=== PATIENT | female | born 1960 | race Hispanic/Latino ===

== ENCOUNTER 2022-05-03 03:22 | Emergency (ER) | payer MEDICARE, MEDICAID, SELFPAY ==
[2022-05-03] VITALS (18 sets, daily range): BP systolic 130–157; BP diastolic 58–71; PULSE 77–96; RESP 18; TEMP 36.4; O2SAT 91–97; BMI 36.1
--- NOTE | 2022-05-03 04:50 | ED_ITS ---
HPI - Abdominal Pain <Georgieralph KingDO - Last Filed: 05/03/22 18:17> General Chief Complaint: Abdominal Pain Stated Complaint: abd. pain/post surgery DIVERTICULITIS 04/27/22 Time Seen by Provider: 05/03/22 04:45 Source: patient, family and hourly sign language interpreter (language line) Mode of arrival: Ambulatory Limitations: no limitations History of Present Illness HPI narrative: This is a 62-year-old female with history of hypertension, tubal ligation and hysterectomy with colon resection approximately 1 week ago at [facility] for diverticulitis. Patient is unsure if she had an abscess or perforation but states that she had a portion of her colon removed. Patient states she has been having pain since the surgery but rapidly increased today. She states she was on several medications for pain including 3 tablets of oxycodone regularly during her hospital stay but was sent home with only a few tablets of oxycodone and has not been able to control her pain. She has not been taking any stool softeners or other medications to help with stooling. She denies fevers or chills. She has had nausea. She denies chest pain or shortness of breath. She has not had a bowel movement since before her surgery. She states she was passing a small amount of flatus immediately postop but has had increasing amounts of flatus since. She denies dysuria urgency or frequency. She is had some vaginal burning but denies any discharge. She states her incisions have color she does not like and they burn right at the edges but have not had any increasing redness, drainage or odor. Patient states she has not restarted her home blood pressure medication since discharge. Patient states she is allergic to penicillin and aspirin. She gets hives and rash with penicillin. She does not know if she can take amoxicillin, Augmentin for other medications. She denies tobacco, alcohol or illicit. She is accompanied by her daughter. Patient does have a primary care physician in the [place] area but does not recall her name. Related Data Previous Rx's Medication Instructions Recorded BENZONATATE (TESSALON PERLES~) 0 PO Q8H PRN ##40 07/25/12 ondansetron 4 mg disintegrating 4 mg PO Q8H PRN nausea and 05/03/22 tablet vomiting #10 tabs Allergies Allergy/AdvReac Type Severity Reaction Status Date / Time Penicillins Allergy Mild Verified 05/03/22 09:50 Review of Systems <Georgie King DO - Last Filed: 05/03/22 18:17> Review of Systems ROS Unobtainable: All systems reviewed & are unremarkable except as noted in HPI and below Patient History <Georgie King DO - Last Filed: 05/03/22 18:17> Social History Smoking Status: Never smoker Smoking Status: Never smoker alcohol intake frequency: holidays/special occasions only Substance Use Type: does not use Exam <Georgie King DO - Last Filed: 05/03/22 18:17> Narrative Exam Narrative: GENERAL: Alert and oriented x three, obese female in mild distress. HEENT: Head normocephalic, atraumatic, EOMI, pupils reactive, face symmetric, moist mucous membranes NECK: Supple, full range of motion CARDIOVASCULAR: Regular rate and rhythm without murmurs, rubs or gallops. RESPIRATORY: Breath sounds equal bilaterally, no wheezes rales or rhonchi. ABDOMEN: Soft, positive for right upper lower quadrant tenderness, Normoactive bowel sounds all 4 quadrants. No guarding or rebound, rigidity, no mass. Patient has 3 small incisions consistent with laparoscopic surgery as well as a larger horizontal incision just over the pubic bone, they are clean dry intact, appear to be healing well, very scant erythema the incision itself but without any extension, no odor, no discharge no swelling. : Positive right flank CVA tenderness, no left flank tenderness. EXTREMITIES: Normal range of motion, no clubbing or edema. Neurovascularly intact NEUROLOGICAL: Cranial nerves II through XII grossly intact. Moving all extremities SKIN: Warm, dry, no petechiae, no rashes or lesions. Initial Vital Signs Initial Vital Signs: Vital Signs Temperature 97.6 F 05/03/22 03:38 Pulse Rate 91 H 05/03/22 03:38 Respiratory Rate 18 05/03/22 03:38 Blood Pressure 157/71 H 05/03/22 03:38 Pulse Oximetry 97 05/03/22 03:38 Oxygen Delivery Method 05/03/22 03:38 <Kimberlee Diaz DO - Last Filed: 05/03/22 16:14> Initial Vital Signs Initial Vital Signs: Vital Signs Temperature 97.6 F 05/03/22 03:38 Pulse Rate 91 H 05/03/22 03:38 Respiratory Rate 18 05/03/22 03:38 Blood Pressure 157/71 H 05/03/22 03:38 Pulse Oximetry 97 05/03/22 03:38 Oxygen Delivery Method 05/03/22 03:38 Course <Georgie King DO - Last Filed: 05/03/22 18:17> Orders Ordered: Discontinued Medications Acetaminophen (Acetaminophen 325 Mg Tablet) 975 mg PO NOW ONE Stop: 05/03/22 09:25 Last Admin: 05/03/22 09:44 Dose: 975 mg Documented By: REYNA Sodium Chloride (Normal Saline 0.9%) 1,000 mls @ 1,000 mls/hr IV BOLUS ONE Stop: 05/03/22 06:11 Last Infusion: 05/03/22 07:05 Dose: 0 mls/hr Documented By: Admin: 05/03/22 05:47 Dose: 1,000 mls/hr Documented By: DONOVAN Ketorolac Tromethamine (Ketorolac 30 Mg/Ml Vial) 15 mg IV NOW ONE Stop: 05/03/22 05:13 Last Admin: 05/03/22 05:46 Dose: 15 mg Documented By: DONOVAN Ondansetron HCl (Ondansetron 4 Mg/2 Ml Inj) 4 mg IV NOW ONE Stop: 05/03/22 05:13 Last Admin: 05/03/22 05:47 Dose: 4 mg Documented By: DONOVAN Ondansetron HCl (Ondansetron 4 Mg/2 Ml Inj) 4 mg IV NOW ONE Stop: 05/03/22 09:25 Last Admin: 05/03/22 09:45 Dose: 4 mg Documented By: REYNA Vital Signs Vital signs: Vital Signs - 8 hr 05/03/22 10:30 05/03/22 11:43 Pulse Rate 77 78 Respiratory Rate 18 Pulse Oximetry 97 Oxygen Delivery Method Room Air <Kimberlee Diaz DO - Last Filed: 05/03/22 16:14> Orders Ordered: Discontinued Medications Acetaminophen (Acetaminophen 325 Mg Tablet) 975 mg PO NOW ONE Stop: 05/03/22 09:25 Last Admin: 05/03/22 09:44 Dose: 975 mg Documented By: REYNA Sodium Chloride (Normal Saline 0.9%) 1,000 mls @ 1,000 mls/hr IV BOLUS ONE Stop: 05/03/22 06:11 Last Infusion: 05/03/22 07:05 Dose: 0 mls/hr Documented By: Admin: 05/03/22 05:47 Dose: 1,000 mls/hr Documented By: DONOVAN Ketorolac Tromethamine (Ketorolac 30 Mg/Ml Vial) 15 mg IV NOW ONE Stop: 05/03/22 05:13 Last Admin: 05/03/22 05:46 Dose: 15 mg Documented By: DONOVAN Ondansetron HCl (Ondansetron 4 Mg/2 Ml Inj) 4 mg IV NOW ONE Stop: 05/03/22 05:13 Last Admin: 05/03/22 05:47 Dose: 4 mg Documented By: DONOVAN Ondansetron HCl (Ondansetron 4 Mg/2 Ml Inj) 4 mg IV NOW ONE Stop: 05/03/22 09:25 Last Admin: 05/03/22 09:45 Dose: 4 mg Documented By: REYNA Vital Signs Vital signs: Vital Signs - 8 hr 05/03/22 10:30 05/03/22 11:43 Pulse Rate 77 78 Respiratory Rate 18 Pulse Oximetry 97 Oxygen Delivery Method Room Air MDM - Abdominal Pain <Georgie King DO - Last Filed: 05/03/22 18:17> Lab Data Result diagrams: 05/03/22 05:45 05/03/22 05:45 Labs: Lab Results 05/03/22 05/03/22 Range/Units 05:45 05:45 WBC 11.3 H (4.5-11.0) X10^3/uL RBC 4.21 (4.0-5.2) X10^6/uL Hgb 12.5 (12.0-16.0) g/dL Hct 38.3 (36-46) % MCV 91.0 (80-100) fL MCH 29.6 (26-34) PG MCHC 32.6 (30-36) % RDW 13.8 (11.6-14.8) % Plt Count 266 (150-400) X10^3/uL Neut % (Auto) 65.6 (50-75) % Lymph % (Auto) 26.1 (25-40) % [place] % (Auto) 6.3 (3-14) % Eos % (Auto) 1.4 L (2-4) % Baso % (Auto) 0.6 (0-2) % Neut # (Auto) 7400 H (8886-5135) /uL Lymph # (Auto) 3000 (4895-1801) /uL [place] # (Auto) 700 (0-900) /uL Eos # (Auto) 200 (0-450) /uL Baso # (Auto) 100 (0-100) /uL Sodium 137 (137-145) mmol/L Potassium 4.1 (3.4-5.1) mmol/L Chloride 103 (98-107) mmol/L Carbon Dioxide 29 (22-32) mmol/L BUN 15 (7-17) mg/dL Creatinine 0.51 L (0.52-1.04) mg/dL Estimated GFR > 60 (>60) mL/min BUN/Creatinine Ratio 29.4 H (6-22) Glucose 124 H (80-110) mg/dL Calcium 8.6 (8.4-10.2) mg/dL Total Bilirubin 0.5 (0.2-1.3) mg/dL AST 42 H (14-36) IU/L ALT 55 H (<35) IU/L Alkaline Phosphatase 84 (38-126) U/L Total Protein 7.3 (6.3-8.2) g/dL Albumin 3.9 (3.5-5.0) g/dL Globulin 3.4 (1.7-4.1) g/dL Albumin/Globulin Ratio 1.1 (1.0-2.8) Lipase 25 (23-300) U/L Point of care testing: Urine Dip Bedside Urine Glucose Negative Bedside Urine Bilirubin - Negative Bedside Urine Ketone - Negative Urine Specific [place] 1.020 Bedside Urine Occult Blood - Negative Bedside Urine pH 6.0 Bedside Urine Protein - Negative Bedside Urine Urobilinogen - Negative Bedside Urine Nitrite - Negative Bedside Urine Leukocytes - Negative Esterase MDM Narrative Medical decision making narrative: This is a 62-year-old female with hypertension, patient with reported colon resection week ago at [facility] for diverticulitis. Unsure if patient had abscess, perforation or other cause. Patient has right upper lower quadrant as well as flank tenderness. She has been constipated she has not been vomiting she is passing flatus which makes my suspicion for bowel obstruction much lower, she has been taking narcotics but no stool softeners. Concern for infection is also on the differential as she is had recent surgery. Her incisions appear to be healing well but CT abdomen pelvis, labs were obtained to evaluate. Patient's vitals appropriate on arrival, she has not restarted her antihypertensives yet. <Kimberlee Diaz, DO - Last Filed: 05/03/22 16:14> Lab Data Labs: Lab Results 05/03/22 05/03/22 Range/Units 05:45 05:45 WBC 11.3 H (4.5-11.0) X10^3/uL RBC 4.21 (4.0-5.2) X10^6/uL Hgb 12.5 (12.0-16.0) g/dL Hct 38.3 (36-46) % MCV 91.0 (80-100) fL MCH 29.6 (26-34) PG MCHC 32.6 (30-36) % RDW 13.8 (11.6-14.8) % Plt Count 266 (150-400) X10^3/uL Neut % (Auto) 65.6 (50-75) % Lymph % (Auto) 26.1 (25-40) % [place] % (Auto) 6.3 (3-14) % Eos % (Auto) 1.4 L (2-4) % Baso % (Auto) 0.6 (0-2) % Neut # (Auto) 7400 H (8261-2734) /uL Lymph # (Auto) 3000 (0564-2630) /uL [place] # (Auto) 700 (0-900) /uL Eos # (Auto) 200 (0-450) /uL Baso # (Auto) 100 (0-100) /uL Sodium 137 (137-145) mmol/L Potassium 4.1 (3.4-5.1) mmol/L Chloride 103 (98-107) mmol/L Carbon Dioxide 29 (22-32) mmol/L BUN 15 (7-17) mg/dL Creatinine 0.51 L (0.52-1.04) mg/dL Estimated GFR > 60 (>60) mL/min BUN/Creatinine Ratio 29.4 H (6-22) Glucose 124 H (80-110) mg/dL Calcium 8.6 (8.4-10.2) mg/dL Total Bilirubin 0.5 (0.2-1.3) mg/dL AST 42 H (14-36) IU/L ALT 55 H (<35) IU/L Alkaline Phosphatase 84 (38-126) U/L Total Protein 7.3 (6.3-8.2) g/dL Albumin 3.9 (3.5-5.0) g/dL Globulin 3.4 (1.7-4.1) g/dL Albumin/Globulin Ratio 1.1 (1.0-2.8) Lipase 25 (23-300) U/L Point of care testing: Urine Dip Bedside Urine Glucose Negative Bedside Urine Bilirubin - Negative Bedside Urine Ketone - Negative Urine Specific [place] 1.020 Bedside Urine Occult Blood - Negative Bedside Urine pH 6.0 Bedside Urine Protein - Negative Bedside Urine Urobilinogen - Negative Bedside Urine Nitrite - Negative Bedside Urine Leukocytes - Negative Esterase Imaging Data CT scan - abdomen/pelvis: Radiologist's Impression: CT Scan Report Signed Patient: Yaima Cleaning MR#: [id number] : 1960 Acct:[id number] Age/Sex: 62 / F Date of Service: 05/03/22 Loc: ED Accession Number: [id number] ?? Procedure: CT abdomen pelvis w con Ordering Provider: Georgie King D.O. PROCEDURE:? CT ABDOMEN PELVIS W CON ? INDICATIONS:? R flank/side pain, no BM, s/p sx 1 wee ago ? TECHNIQUE:? After the administration of intravenous contrast, axial sections acquired from the lung bases to the pubic symphysis.? Coronal and sagittal reformats were performed.? For radiation dose reduction, the following was used:? automated exposure control, adjustment of mA and/or kV according to patient size.? ? COMPARISON:? [facility], CT, CT ABDOMEN PELVIS WITH CONTRAST, 01/21/2022, 10:48. ? FINDINGS:? Image quality:? Good ? Lower chest:? Basilar opacities, possibly aspiration or early airspace disease, with superimposed thick linear atelectasis or scarring. Nonspecific distal esophageal wall thickening.? Mild cardiomegaly. ? Solid organs:? Subcentimeter lesions are too small to characterize.? Liver is otherwise unremarkable.? Gallbladder is within normal limits.? No pathologic dilation of the biliary tree or pancreatic duct.? No splenomegaly.? No adrenal nodules.? No hydronephrosis.? Mild fat stranding around the left distal ureter, possibly reactive, correlate with urinalysis. ? Vessels and lymph nodes:? Main portal vein is patent.? No abdominal aortic an eurysm.? No pathologic adenopathy by size criteria. ? Bowel and peritoneum:? Nonobstructed.? Interval creation of a suture line at the sigmoid colon.? There is a moderate degree of surrounding fat stranding.? No drainable abscess is identified.? The fat stranding extends proximally along the left pericolic gutter and splenic flexure.? Colonic diverticula are present. Suspected dilated appendix is present measuring 8-9 mm (. ? Body wall:? There is hyperemia and postsurgical changes in the ventral body wall. ? Pelvis:? Hysterectomy.? Fullness of the vaginal cuff, particularly on the right side, possibly reactive edema.? The ovaries also appear more prominent than prior, possibly reactive.? These should be followed on subsequent imaging. Air in the bladder, likely iatrogenic. ? Bones:? No acute or suspicious osseous abnormality. ? ? IMPRESSION:? Postsurgical changes in the pelvis with a sigmoid anastomosis.? No drainable abscess.? Inflammation extends from the distal colon to splenic flexure, possibly superimposed colitis. Suspected dilated and hyperemic appendix, correlate with surgical history and clinical presentation for possible appendicitis. Possible airspace disease and superimposed atelectasis at the lung bases partially seen. Other findings as above. ? Dictated by: Yony Poe M.D. on 05/03/2022 at 7:49 ? ? Approved by: Yony Poe M.D. on 05/03/2022 at 8:00 ? [facility] Narrative Medical decision making narrative: This is a 62-year-old female with hypertension, patient with reported colon resection week ago at [facility] for diverticulitis. Unsure if patient had abscess, perforation or other cause. Patient has right upper lower quadrant as well as flank tenderness. She has been constipated she has not been vomiting she is passing flatus which makes my suspicion for bowel obstruction much lower, she has been taking narcotics but no stool softeners. Concern for infection is also on the differential as she is had recent surgery. Her incisions appear to be healing well but CT abdomen pelvis, labs were obtained to evaluate. Patient's vitals appropriate on arrival, she has not restarted her antihypertensives yet. Emily, patient signed out to me by Dr. King. Patient seen and evaluated by myself hourly sign language interpreter services used. She has thompson across lower abdominal pain slig htly more on the right than the left. CT does show some inflammatory changes questionable appendicitis. She is mild leukocytosis of 11. Pain is much better after Toradol and Zofran. 1130-Dr. Bobby on-call surgery at [facility] finally able to see imaging. There was some technical difficulty. At this time she states this is likely all postoperative changes. No need for antibiotics. Recommend MiraLax once daily and Colace twice a day for constipation. Discharge Plan Departure Patient Disposition: Home Clinical Impression: Post-op pain Instructions: DI for Postoperative Pain Activity Restrictions/Additional Instructions: *You have been diagnosed with postoperative pain *What to do: At this time no need for antibiotics. No sign of appendicitis. Food may be causing irritation. Recommend low-fiber diet avoid beans fruits vegetables. Recommend breads pasta rice meat cheese, for about 4-6 weeks. *Continue to take medications as directed MiraLax once daily as needed for constipation Colace twice a day as needed for constipation *Follow up with your primary care provider in 2-3 days or call [phone] *Return to ER if you should have increasing pain fever or any new, worsening or concerning symptoms Prescriptions: New ondansetron 4 mg tablet,disintegrating 4 mg PO Q8H PRN (Reason: nausea and vomiting) Qty: 10 0RF No Action BENZONATATE (TESSALON PERLES~) 0 PO Q8H PRNQty: 40 0RF Visit Report Forms: Patient Portal/API
--- NOTE | 2022-05-03 05:13 | DI.CT.S_ITS ---
PROCEDURE: CT ABDOMEN PELVIS W CON INDICATIONS: R flank/side pain, no BM, s/p sx 1 wee ago TECHNIQUE: After the administration of intravenous contrast, axial sections acquired from the lung bases to the pubic symphysis. Coronal and sagittal reformats were performed. For radiation dose reduction, the following was used: automated exposure control, adjustment of mA and/or kV according to patient size. COMPARISON: [facility], CT, CT ABDOMEN PELVIS WITH CONTRAST, 01/21/2022, 10:48. FINDINGS: Image quality: Good Lower chest: Basilar opacities, possibly aspiration or early airspace disease, with superimposed thick linear atelectasis or scarring. Nonspecific distal esophageal wall thickening. Mild cardiomegaly. Solid organs: Subcentimeter lesions are too small to characterize. Liver is otherwise unremarkable. Gallbladder is within normal limits. No pathologic dilation of the biliary tree or pancreatic duct. No splenomegaly. No adrenal nodules. No hydronephrosis. Mild fat stranding around the left distal ureter, possibly reactive, correlate with urinalysis. Vessels and lymph nodes: Main portal vein is patent. No abdominal aortic aneurysm. No pathologic adenopathy by size criteria. Bowel and peritoneum: Nonobstructed. Interval creation of a suture line at the sigmoid colon. There is a moderate degree of surrounding fat stranding. No drainable abscess is identified. The fat stranding extends proximally along the left pericolic gutter and splenic flexure. Colonic diverticula are present. Suspected dilated appendix is present measuring 8-9 mm (3/32. Body wall: There is hyperemia and postsurgical changes in the ventral body wall. Pelvis: Hysterectomy. Fullness of the vaginal cuff, particularly on the right side, possibly reactive edema. The ovaries also appear more prominent than prior, possibly reactive. These should be followed on subsequent imaging. Air in the bladder, likely iatrogenic. Bones: No acute or suspicious osseous abnormality. IMPRESSION: Postsurgical changes in the pelvis with a sigmoid anastomosis. No drainable abscess. Inflammation extends from the distal colon to splenic flexure, possibly superimposed colitis. Suspected dilated and hyperemic appendix, correlate with surgical history and clinical presentation for possible appendicitis. Possible airspace disease and superimposed atelectasis at the lung bases partially seen. Other findings as above. Dictated by: Yony Poe M.D. on 05/03/2022 at 7:49 Approved by: Yony Poe M.D. on 05/03/2022 at 8:00
[2022-05-03] MEDS: KETOROLAC 30 MG/ML VIAL 15 MG IV (05:46)
[2022-05-03] MEDS: ONDANSETRON 4 MG/2 ML INJ IV ×2 (05:47→09:45)
[2022-05-03] MEDS: SODIUM CHLORIDE 0.9% 1,000 ML 1000 ML IV (05:47)
[2022-05-03 05:59] LABS: Add Manual Diff / Slide Review NO; Basophils Absolute Auto 100 /uL (0-100); Basophils Percent Auto 0.6 % (0-2); Eosinophils Absolute Auto 200 /uL (0-450); Eosinophils Percent Auto 1.4 % (2-4); Hematocrit 38.3 % (36-46); Hemoglobin 12.5 g/dL (12.0-16.0); Lymphocytes Absolute Auto 3000 /uL (1100-4500); Lymphocytes Percent Auto 26.1 % (25-40); Mean Corpuscular HGB Conc 32.6 % (30-36); Mean Corpuscular Hemoglobin 29.6 PG (26-34); Monocytes Absolute Auto 700 /uL (0-900); Monocytes Percent Auto 6.3 % (3-14); Neutrophils Absolute Auto 7400 /uL (1500-7000); Neutrophils Percent Auto 65.6 % (50-75); Platelet Count 266 X10^3/uL (150-400); Red Blood Cell Count 4.21 X10^6/uL (4.0-5.2); Red Cell Distribution Width 13.8 % (11.6-14.8); White Blood Cell Count 11.3 X10^3/uL (4.5-11.0)
[2022-05-03 06:01] LABS: Alanine Aminotransferase 55 IU/L (<35); Albumin 3.9 g/dL (3.5-5.0); Albumin Globulin Ratio 1.1 (1.0-2.8); Alkaline Phosphatase 84 U/L (38-126); Aspartate Aminotransferase 42 IU/L (14-36); BUN Creatinine Ratio 29.4 (6-22); Bilirubin Total 0.5 mg/dL (0.2-1.3); Blood Urea Nitrogen 15 mg/dL (7-17); Calcium 8.6 mg/dL (8.4-10.2); Carbon Dioxide 29 mmol/L (22-32); Chloride 103 mmol/L (98-107); Estimated Glomerular Filt Rate > 60 mL/min (>60); Globulin 3.4 g/dL (1.7-4.1); Glucose 124 mg/dL (80-110); HEMOLYSIS < 15 (0-50); Lipase 25 U/L (23-300); Potassium 4.1 mmol/L (3.4-5.1); Sodium 137 mmol/L (137-145); Total Protein 7.3 g/dL (6.3-8.2)
[2022-05-03] MEDS: ACETAMINOPHEN 325 MG TABLET 975 MG PO (09:44)
== END 2022-05-03 12:03 | disposition home or self-care (01) ==
PROVIDERS: Emergency Medicine; Emergency Provider Emergency Medicine
DX: G89.18 Other acute postprocedural pain (principal)
CPT/HCPCS: 36415; 74177; 80053; 81003; 83690; 85025; 96361; 96374; 96375; 96376; 99284; J1885; J2405; Q9967

== ENCOUNTER → 2023-06-22 09:04 | Outpatient (CLI) | payer MEDICARE, MEDICAID, SELFPAY ==
[2023-06-22 10:24] LABS: Add Manual Diff / Slide Review NO; Basophils Absolute Auto 0 /uL (0-100); Basophils Percent Auto 0.4 % (0-2); Eosinophils Absolute Auto 100 /uL (0-450); Eosinophils Percent Auto 1.3 % (2-4); Hemoglobin 13.8 g/dL (12.0-16.0); Lymphocytes Absolute Auto 2800 /uL (1100-4500); Lymphocytes Percent Auto 31.6 % (25-40); Mean Corpuscular HGB Conc 33.7 % (30-36); Mean Corpuscular Hemoglobin 30.3 PG (26-34); Mean Corpuscular Volume 90.1 fL (80-100); Monocytes Absolute Auto 500 /uL (0-900); Monocytes Percent Auto 6.1 % (3-14); Neutrophils Absolute Auto 5300 /uL (1500-7000); Neutrophils Percent Auto 60.6 % (50-75); Platelet Count 299 X10^3/uL (150-400); Red Blood Cell Count 4.56 X10^6/uL (4.0-5.2); Red Cell Distribution Width 13.9 % (11.6-14.8); White Blood Cell Count 8.8 X10^3/uL (4.5-11.0)
[2023-06-22 11:15] LABS: Alanine Aminotransferase 22 IU/L (<35); Albumin 4.1 g/dL (3.5-5.0); Albumin Globulin Ratio 1.3 (1.0-2.8); Alkaline Phosphatase 82 U/L (38-126); Aspartate Aminotransferase 23 IU/L (14-36); BUN Creatinine Ratio 26.1 (6-22); Bilirubin Total 0.5 mg/dL (0.2-1.3); Blood Urea Nitrogen 12 mg/dL (7-17); Calcium 9.4 mg/dL (8.4-10.2); Carbon Dioxide 28 mmol/L (22-32); Chloride 105 mmol/L (98-107); Cholesterol 235 mg/dL (140-199); Estimated Glomerular Filt Rate > 60 mL/min (>60); Globulin 3.1 g/dL (1.7-4.1); Glucose 102 mg/dL (80-110); HDL Cholesterol 34 mg/dL (40-60); HEMOLYSIS < 15 (0-50); LDL Cholesterol Calculated 153 mg/dL (<100); Potassium 4.4 mmol/L (3.4-5.1); Sodium 139 mmol/L (137-145); Total Protein 7.2 g/dL (6.3-8.2); Triglycerides 242 mg/dL (35-150)
[2023-06-22 12:02] LABS: Vitamin B12 858 pg/mL (239-931)
== END ==
PROVIDERS: PCP Family Medicine; Referring Provider Family Medicine; Visit Provider Family Medicine
DX: Z13.220 Encounter for screening for lipoid disorders (principal); M54.50 Low back pain, unspecified; G89.29 Other chronic pain; G62.9 Polyneuropathy, unspecified; Z90.49 Acquired absence of other specified parts of digestive tract
CPT/HCPCS: 36415; 80053; 80061; 82607; 84443; 85025

== ENCOUNTER → 2024-07-19 09:08 | Outpatient (CLI) | payer MEDICARE, MEDICAID, SELFPAY | PROVIDERS: PCP Family Medicine; Visit Provider Family Medicine | DX: N89.8 Other specified noninflammatory disorders of vagina (principal) | CPT/HCPCS: 87210; 87491; 87563; 87591 ==

== ENCOUNTER → 2024-07-28 10:13 | Outpatient (CLI) | payer MEDICARE, MEDICAID, SELFPAY ==
--- NOTE | 2024-07-28 10:14 | DI.RAD.S_ITS ---
PROCEDURE: XR DEXA AXIAL SKELETON INDICATIONS: Screen osteoporosis COMPARISON: None. FINDINGS: Lumbar Spine: Bone mineral density 1.297 g/cm2, T score 2.3, normal. Left Femoral Neck: Bone mineral density 0.844 g/cm2, T score 0.0, normal. Left Hip: Bone mineral density 1.049 g/cm2, T score 0.9, normal. Fracture Risk Calculation (when applicable): 10-year fracture risk of a major osteoporotic fracture not calculated because all T-scores are at or above -1.0. (T score greater or equal to -1.0 to: NORMAL) (T score from -1.1 to -2.4: OSTEOPENIA) (T score less than or equal to -2.5: OSTEOPOROSIS) IMPRESSION: Normal bone mineral density. No elevated fracture risk. Follow-up guidelines as follows: Osteoporosis: Consider a repeat DEXA and Vertebral Fracture Assessment (VFA) exam in 2 years or sooner if medically necessary, to reassess this patient's status. Osteopenia: Consider a repeat DEXA in 2-3 years to reassess this patient's status, or if there is a new clinical indication. Normal: Consider a repeat DEXA in 5 years or sooner, or if there is a new clinical indication. All treatment decisions require clinical judgment and consideration of individual patient factors, including patient preferences, comorbidities, previous drug use, risk factors not captured in the FRAX model (e.g., frailty, falls, vitamin D deficiency, increased bone turnover, interval significant decline in bone density ) and possible under- or over-estimation of fracture risk by FRAX. In addition, the NOF Guide recommends that FDA-approved medical therapies be considered in postmenopausal women and men age >= 50 years with a: * Hip or vertebral (clinical or morphometric) fracture * T-score of <=-2.5 at the spine or hip * Ten-year fracture probability by FRAX of >= 3% for hip fracture or >=20% for major osteoporotic fracture. Dictated by: Martha Morales M.D. on 07/28/2024 at 14:52 Approved by: Martha Morales M.D. on 07/28/2024 at 14:53
== END ==
PROVIDERS: PCP Family Medicine; Referring Provider Family Medicine; Visit Provider Family Medicine
DX: M85.89 Other specified disorders of bone density and structure, multiple sites (principal); Z78.0 Asymptomatic menopausal state
CPT/HCPCS: 77080

== ENCOUNTER → 2024-10-11 08:33 | Outpatient (CLI) | payer MEDICARE, MEDICAID, SELFPAY ==
[2024-10-11 09:59] LABS: Add Manual Diff / Slide Review NO; Basophils Absolute Auto 0 /uL (0-100); Basophils Percent Auto 0.4 % (0-2); Eosinophils Absolute Auto 100 /uL (0-450); Eosinophils Percent Auto 1.3 % (2-4); Hematocrit 43.3 % (36-46); Hemoglobin 14.5 g/dL (12.0-16.0); Lymphocytes Absolute Auto 3200 /uL (1100-4500); Lymphocytes Percent Auto 35.5 % (25-40); Mean Corpuscular HGB Conc 33.6 % (30-36); Mean Corpuscular Hemoglobin 30.6 PG (26-34); Mean Corpuscular Volume 91.1 fL (80-100); Monocytes Absolute Auto 500 /uL (0-900); Monocytes Percent Auto 5.7 % (3-14); Neutrophils Absolute Auto 5200 /uL (1500-7000); Neutrophils Percent Auto 57.1 % (50-75); Platelet Count 295 X10^3/uL (150-400); Red Blood Cell Count 4.75 X10^6/uL (4.0-5.2); Red Cell Distribution Width 13.4 % (11.6-14.8); White Blood Cell Count 9.1 X10^3/uL (4.5-11.0)
[2024-10-11 10:24] LABS: Alanine Aminotransferase 22 IU/L (<35); Albumin 4.4 g/dL (3.5-5.0); Albumin Globulin Ratio 1.6 (1.0-2.8); Alkaline Phosphatase 74 U/L (38-126); Aspartate Aminotransferase 25 IU/L (14-36); BUN Creatinine Ratio 25.5 (6-22); Bilirubin Total 0.7 mg/dL (0.2-1.3); Blood Urea Nitrogen 14 mg/dL (7-17); Calcium 9.2 mg/dL (8.4-10.2); Carbon Dioxide 27 mmol/L (22-32); Chloride 104 mmol/L (98-107); Cholesterol 255 mg/dL (140-199); Estimated Glomerular Filt Rate > 60 mL/min (>60); Globulin 2.7 g/dL (1.7-4.1); Glucose 110 mg/dL (70-99); HDL Cholesterol 36 mg/dL (40-60); HEMOLYSIS < 15 (0-50); LDL Cholesterol Calculated 174 mg/dL (<100); Potassium 4.8 mmol/L (3.4-5.1); Sodium 138 mmol/L (137-145); Total Protein 7.1 g/dL (6.3-8.2); Triglycerides 227 mg/dL (35-150)
[2024-10-11 11:11] LABS: Hep C Virus Ab w/Reflex Quant NEGATIVE s/c (NEGATIVE)
== END ==
PROVIDERS: PCP Family Medicine; Referring Provider Family Medicine; Visit Provider Family Medicine
DX: E78.5 Hyperlipidemia, unspecified (principal); G62.9 Polyneuropathy, unspecified; Z87.19 Personal history of other diseases of the digestive system; Z11.59 Encounter for screening for other viral diseases
CPT/HCPCS: 36415; 80053; 80061; 85025; 86803

== ENCOUNTER → 2024-10-24 08:21 | Outpatient (CLI) | payer MEDICARE, MEDICAID, SELFPAY ==
[2024-10-24 09:34] LABS: Erythrocyte Sedimentation Rate 11 MM/HR (0-20)
[2024-10-24 09:35] LABS: C-Reactive Protein Quant < 0.5 mg/dL (<1.0); Rheumatoid Factor < 8.6 IU/mL (<12.0)
[2024-10-24 09:42] LABS: NT-proBNP (BNP-Adult 18+) 64 pg/mL (<125)
[2024-10-24 10:08] LABS: TSH w/ Reflex to FT4 2.98 uIU/mL (0.47-4.68)
[2024-10-24 10:23] LABS: Vitamin B12 Reflex MMA if <400 959 pg/mL (239-931)
[2024-10-24 10:38] LABS: Vitamin D 25 Hydroxy (D3) 44.8 ng/mL (30.0-100.0)
== END ==
PROVIDERS: PCP Family Medicine; Referring Provider Family Medicine; Visit Provider Family Medicine
DX: R06.00 Dyspnea, unspecified (principal); G62.9 Polyneuropathy, unspecified
CPT/HCPCS: 36415; 82306; 82607; 83880; 84155; 84165; 84443; 85651; 86038; 86140; 86200; 86430

== ENCOUNTER → 2025-01-26 15:20 | Outpatient (CLI) | payer MEDICARE, MEDICAID, SELFPAY ==
--- NOTE | 2025-01-26 15:21 | DI.MG.S_ITS ---
MM screening mammo BI: 01/26/2025. BI-RADS: 1 CLINICAL: 65-year old female for bilateral screening mammogram. Tyrer-Cuzick lifetime risk of 4.2%. No personal or first-degree family history of breast cancer. PRIOR EXAMS 02/17/2022. MAMMOGRAPHY TECHNIQUE: 2D and 3D (tomosynthesis) digital mammographic views obtained, with additional images as needed for full coverage. Current study was also evaluated with a Computer Aided Detection (CAD) system. DENSITY B. There are scattered areas of fibroglandular density. MAMMOGRAPHY FINDINGS Bilateral: No suspicious mass, asymmetry, microcalcification, or other abnormality seen. IMPRESSION: * No evidence of malignancy. RECOMMENDATIONS Bilateral * Annual screening mammography. OVERALL ASSESSMENT CATEGORY BI-RADS-1: Negative. The [employer] recommends annual screening mammography beginning at age 40 for women with average risk of breast cancer. ELECTRONICALLY SIGNED: Nicolle Gasca M.D. on 01/27/2025 at 10:51:21 PM PT Interpreting Station ID: [id number]
== END ==
LOC: MAMMO 15:20
PROVIDERS: PCP Family Medicine; Referring Provider Family Medicine; Visit Provider Family Medicine
DX: Z12.31 Encounter for screening mammogram for malignant neoplasm of breast (principal)
CPT/HCPCS: 77063; 77067